=== PATIENT | male | born 1935 | race Caucasian/White ===

== ENCOUNTER 2017-10-31 13:43 | Inpatient (IN) | payer MEDICARE ==
[~2017-10-31] VITALS: Ht 185.4 cm; Wt 103.9 kg
[2017-10-31] MEDS ORDERED: SODIUM CHLORIDE FLUSH 10 ML SYR INJ PRN ×2 (14:15)
[2017-10-31 15:06] LABS: BASOPHILS # (AUTO) 0.1 (0.0-0.1); BASOPHILS % 0.4 % (0.0-1.0); EOSINOPHILS % 0.1 % (0.0-6.0); HEMATOCRIT 38.7 % (38.2-49.6); HEMOGLOBIN 13.2 g/dL (14.0-18.0); LYMPHOCYTES # (AUTO) 0.9 (1.0-3.2); LYMPHOCYTES % 5.4 % (18.0-39.1); MEAN CORPUSCULAR HGB CONC 34.1 g/dL (31-35); MEAN CORPUSCULAR VOLUME 90.8 fL (81-99); MONOCYTES # (AUTO) 0.7 (0.2-0.8); MONOCYTES % 4.6 % (4.4-11.3); NEUTROPHILS # (AUTO) 14.3 (2.1-6.9); NEUTROPHILS % 88.8 % (38.7-80.0); PLATELET COUNT 301 x10e3/uL (140-360); RED BLOOD COUNT 4.26 x10e6/uL (4.3-5.7); RED CELL DISTRIBUTION WIDTH 13.2 % (11.7-14.4)
[2017-10-31 15:09] LABS: BILIRUBIN,URINE NEGATIVE (NEGATIVE); CLARITY,URINE CLEAR (CLEAR); COLOR,URINE YELLOW (YELLOW); KETONES,URINE NEGATIVE (NEGATIVE); LEUKOCYTE ESTERASE ,URINE NEGATIVE (NEGATIVE); NITRITE,URINE NEGATIVE (NEGATIVE); PROTEIN,URINE DIPSTICK NEGATIVE (NEGATIVE); URINE UROBILINOGEN 0.2 mg/dL (0.2 - 1)
[2017-10-31 15:30] LABS: RBC,URINE 0-5 /HPF (0-5); WBC,URINE (MAN) 0-5 /HPF (0-5)
[2017-10-31 15:30] LABS: ALBUMIN 3.7 g/dL (3.5-5.0); ALBUMIN/GLOBULIN RATIO 1.3 (0.8-2.0); ANION GAP 16.2 mmol/L (8-16); CALCIUM 9.4 mg/dL (8.4-10.2); CREATININE, SERUM 2.09 mg/dL (0.72-1.25); POTASSIUM 4.2 mmol/L (3.5-5.1)
[2017-10-31 15:37] LABS: CREATINE KINASE MB 3.3 ng/mL (0.00-5.00); TROPONIN I 0.015 ng/mL (0-0.300)
--- NOTE | 2017-10-31 15:41 | Diagnostic Imaging Report ---
EXAM: CT Abdomen and Pelvis WITHOUT contrast INDICATION: COMPARISON: None. TECHNIQUE: Abdomen and Pelvis was scanned utilizing a multidetector helical scanner without the use of IV contrast. Coronal and sagittal reformations were obtained. IV CONTRAST: None COMPLICATIONS: None RADIATION DOSE: Total DLP: 2365 mGy*cm Estimated effective dose: (DLP x 0.015 x size factor) mSv CTDIvol has been reviewed. It is below the limits set by the Radiation Protocol Committee (RPC). FINDINGS: Abdomen: Lung Bases: Atelectasis present lung bases. Solid Organs: Bilateral renal hypodensities are incompletely evaluated, but statistically represent simple cysts. Largest on the right 51 mm and largest on the left 59 mm. Bilateral nonobstructing renal calculi present, largest on the right 6 mm and largest on the left 4 mm. No hydronephrosis or ureteral calculi. Nonenhanced images of the liver, adrenals, spleen, and pancreas are unremarkable except for fatty infiltration of the pancreas. Upper GI Tract: Small hiatal hernia. Gastric decompression limits evaluation. No small bowel obstructive changes. Vascularity: Moderate aortic vascular calcifications with no aneurysm. Lymph Nodes: Within limitations of nonenhanced exam, no suspicious adenopathy. Other: No right flank hematoma is identified within the subcutaneous tissues. Minimal subcutaneous stranding may represent mild contusion. Pelvis: Bladder: Unremarkable. Other: Prosthetic seeds. Inguinal canals patulous. [place] artifact from left hip prosthesis partially limits pelvic evaluation. Colon: No acute colonic findings. Appendix not inflamed. Bones: Degenerative changes spine, vertebroplasty changes L5, and total hip arthroplasty changes on the left. IMPRESSION: 1. No large right flank hematoma identified. Minimal subcutaneous stranding suggest contusion. 2. Statistical cysts in the kidneys bilaterally with bilateral nonobstructing renal calculi. 3. Other findings as above. Signed by: Dr. Michael Carrillo MD on 10/31/2017 3:37 PM
--- NOTE | 2017-10-31 15:41 | Diagnostic Imaging Report ---
EXAM: XR CHEST 1 VIEW DATE: 10/31/2017 2:12 PM INDICATION: Fall COMPARISON: None FINDINGS: Lines and Tubes: None Heart and Mediastinum: No acute findings. Lungs and Pleura: Minimal opacities in the lung bases statistically represent atelectasis, however, infectious process could have a similar appearance. Bones and Soft Tissues: No acute findings. IMPRESSION: 1. No acute cardiopulmonary findings. Signed by: Dr. Michael Carrillo MD on 10/31/2017 3:37 PM
--- NOTE | 2017-10-31 15:59 | Diagnostic Imaging Report ---
Examination: CT BRAIN WITHOUT CONTRAST History:Dizziness. Fall. No head injury. Comparison studies:None Technique: Axial images were obtained from the skull base to the vertex. Coronal and sagittal images reconstructed from the axial data. Intravenous contrast: None Findings: Scalp: No abnormalities. Bones: No fractures, blastic or lytic lesions. Brain sulci: Mild volume loss for age. Ventricles: No hydrocephalus. Extra-axial space: No abnormalities. Parenchyma: Chronic cortical based infarcts are demonstrated in the right inferior and left superior frontal gyri, bilateral superior parietal lobules, right occipital lobe, right superior cerebellum and left posterior mid cerebellum. There are mild confluent areas of hypoattenuation in the periventricular and subcortical white matter, nonspecific. No masses, hemorrhage, or acute cortical based vascular insults. Sellar/suprasellar region: No abnormalities. Craniocervical junction: Patent foramen magnum. No Chiari one malformation. Incidental findings: Opacified right sphenoid sinus. Atherosclerotic calcification of the cavernous and supraclinoid internal carotid arteries. Impression: 1. No acute intracranial abnormality. 2. Chronic cortical based bilateral frontoparietal, right occipital lobe, and bilateral cerebellar infarcts, as above. 3. Mild chronic microvascular ischemic change and volume loss. Signed by: Dr. Ema Virk M.D. on 10/31/2017 3:55 PM
[2017-10-31] MEDS ORDERED: DEXTROSE 50% SYRINGE 50 ML IV PRN ×2 (17:45→18:30)
[2017-10-31] MEDS ORDERED: METFORMIN HCL500 MG PO (17:51)
[2017-10-31] MEDS ORDERED: HYDROCHLOROTHIA25 MG PO (17:52)
[2017-10-31] MEDS ORDERED: PREDNISONE10 MG PO (17:54)
[2017-10-31] MEDS ORDERED: LISINOPRIL2.5 MG PO (17:54)
[2017-10-31] MEDS ORDERED: GLIMEPIRIDE2 MG PO (17:54)
[2017-10-31] MEDS ORDERED: AMLODIPINE BESYL5 MG PO (17:54)
[2017-10-31] MEDS ORDERED: ALLOPURINOL100 MG PO (17:54)
[2017-10-31] MEDS: INSULIN REGULAR, HUMAN 100 UNIT/1 ML 3ML VIAL SQ SCH (18:33)
[2017-10-31 22:15] VITALS: BP 150/81
[2017-10-31 23:00] VITALS: BP 150/81
[2017-11-01] VITALS (7 sets, daily range): BP systolic 126–160; BP diastolic 71–89
[2017-11-01 06:02] LABS: CREATINE KINASE MB 2.8 ng/mL (0.00-5.00); TROPONIN I 0.011 ng/mL (0-0.300)
[2017-11-01] MEDS: INSULIN REGULAR, HUMAN 100 UNIT/1 ML 3ML VIAL SQ SCH ×4 (07:30→21:03)
[2017-11-01] MEDS: ASPIRIN 81 MG ENTERIC COATED PO SCH (08:01)
[2017-11-01 09:20] LABS: CREATINE KINASE MB 2.6 ng/mL (0.00-5.00); TROPONIN I 0.01 ng/mL (0-0.300)
--- NOTE | 2017-11-01 15:20 | Consultation ---
DATE OF CONSULTATION: November 01, 2017 NEPHROLOGY CONSULTATION REASON FOR CONSULTATION: Chronic kidney disease. This is an 82-year-old male who is known to have multiple medical problems including hypertension and diabetes for a long time with diabetic retinopathy and neuropathy. He basically felt dizzy last week and tripped and fell on an ironing board and hit his right side flank area. A few days later, he called his daughter to bring him to the ER for further evaluation for which a CAT scan did not show any hematoma. He is not aware of previous kidney problems or what was his kidney baseline function. Today, his creatinine is 2 and BUN 33, and thus we are consulted. REVIEW OF SYSTEMS: Negative otherwise. PAST MEDICAL HISTORY: As mentioned above. PAST SURGICAL HISTORY: Per record. SOCIAL HISTORY: Denies smoking, alcohol or IV drug abuse. Lives by himself. ALLERGIES: NEGATIVE PER RECORDS. FAMILY HISTORY: Positive for hypertension and diabetes. PHYSICAL EXAMINATION VITALS: Today's vital signs include blood pressure 150/76, heart rate 90, temperature 98.8. GENERAL: Appears in no acute distress. Alert and oriented. HEAD, EARS, EYES, NECK: No lymphadenopathy. HEART: Regular rate and rhythm. LUNGS: Good bilateral air entry. ABDOMEN: Soft, nontender, with bruising on the right side flank. LOWER EXTREMITIES: Trace edema. LABS: His white count is elevated at 16 with left shift. Hemoglobin 13.2. Creatinine was about 2. Potassium 4.2. His sodium was 136. LFTs are normal. Albumin is 3.7. ASSESSMENT AND PLAN 1. Chronic kidney disease, stage 3 probably. The patient is unaware about previous kidney problems, but I am suspecting underlying diabetic nephropathy and probably hypertensive nephrosclerosis. We are going to monitor closely. Avoid nephrotoxins. Check fractional excretion of sodium. Renal ultrasound. Educated the patient about holding nonsteroidal anti-inflammatory drugs and avoiding further nephrotoxins. 2. Electrolytes are within range. 3. Diabetes. The patient is on metformin, which is not recommended with stage-3B and further down. I am going to change it to Starlix or Januvia, whatever is more safe on the kidneys in the setting of CKD. 4. Hypertension. Blood pressure is high. Titrate medications. Can keep lisinopril for now as he has been on it for a while. Check urine protein to creatinine ratio. 5. Leukocytosis, possible urinary tract infection. Urine culture has been sent. Thank you for the consult. We will update the primary team for further recommendations. Job#: [id number] GARRISON
--- NOTE | 2017-11-01 16:57 | Diagnostic Imaging Report ---
EXAMINATION: MR angiogram of the neck without contrast CLINICAL HISTORY: TIA, status post fall. COMPARISON: NA TECHNIQUE: A 2D [id number] TOF angiographic sequences without was performed on the neck . The source images and sales representative publications projections of the MIP images through 180 degrees of rotation of the neck were reviewed FINDINGS: If present, stenosis of the carotid bulbs is measured based on NASCET criteria i.e area of maximum stenosis compared to the cervical ICA distal to the bulb. Carotid bulbs: Hypointense signal within the left carotid bulb results in moderate stenoses (50-69%), likely a combination of flow related artifact and atherosclerosis. Pelvis extent hyperintense signal is seen in the right carotid bulb without dynamic significant stenosis (less than 50%). Right Carotid Artery: The common carotid, internal and external carotid arteries at the level of the neck are normal in caliber, and patent, no evidence of stenoses. Left Carotid Artery: The common carotid, internal and external carotid arteries at the level of the neck are normal in caliber, and patent, no evidence of stenoses. Vertebral Arteries: The left vertebral artery is originating from the aortic arch, as a normal variation of the anatomy. Both are normal in morphology and caliber. Both are codominant. No significant stenosis is seen. IMPRESSION: 1. Moderate stenosis of the left carotid bulb (50-69%). A CT angiogram of the head and neck is recommended for further evaluation. 2. No hemodynamically significant stenosis of the right carotid bulb. 3. Patent vertebral arteries Signed by: Dr. Isabel Wallace M.D. on 11/01/2017 4:53 PM
[2017-11-01] MEDS ORDERED: METFORMIN HCL 500 MG TAB PO SCH (17:00)
--- NOTE | 2017-11-01 17:04 | Diagnostic Imaging Report ---
EXAMINATION: MRI of the brain without contrast. HISTORY: TIA COMPARISON: Head CT on 10/31/2017 TECHNIQUE: Sagittal T2; axial DWI, T2, FLAIR, T1-IR, T2 gradient echo; coronal FLAIR. IMAGE QUALITY: Adequate. FINDINGS: Parenchyma: 1. No acute infarcts. 2. Unchanged multiple watershed cortical infarcts in the bilateral frontal lobes (LIZZ/MCA distribution) and left greater than right parieto-occipital regions (MCA/BILLING ASSISTANT distributions). 3. Hemosiderin deposition in the right medial occipital encephalomalacia (cuneus) related to hemorrhagic component from chronic infarction in the right degenerative distribution. 4. A small chronic cortical infarct in the bilateral superior and posterior cerebellar hemispheres. 5. Moderate confluent supratentorial white matter hyperintensities, most likely nonspecific moderate chronic microvascular ischemic changes. 6. No mass, hemorrhage, acute or chronic infarcts. Skull: Unremarkable. Vessels: Expected flow voids present in the major arteries and dural sinuses. Extra-axial spaces: No abnormal signal intensity or mass effect. Brain volume: Within normal limits for age. Ventricles: No hydrocephalus or displacement. Foramen magnum: Unremarkable. Sella: Unremarkable. Paranasal / mastoid sinuses: No significant inflammatory disease. IMPRESSION: 1. No acute infarcts. 2. Unchanged multiple chronic watershed distribution cortical infarcts. Right occipital and bilateral cerebellar chronic infarcts. 3. Moderate confluent white matter chronic microvascular ischemic changes. Signed by: Dr. Isabel Wallace M.D. on 11/01/2017 5:00 PM
[2017-11-02 00:01] VITALS: BP 153/77
[2017-11-02 04:00] VITALS: BP 148/67
[2017-11-02 06:45] LABS: BASOPHILS # (AUTO) 0.1 (0.0-0.1); BASOPHILS % 0.5 % (0.0-1.0); EOSINOPHILS # (AUTO) 0.2 (0.0-0.4); EOSINOPHILS % 1.9 % (0.0-6.0); HEMATOCRIT 36.1 % (38.2-49.6); HEMOGLOBIN 12.5 g/dL (14.0-18.0); LYMPHOCYTES # (AUTO) 1.7 (1.0-3.2); LYMPHOCYTES % 13.6 % (18.0-39.1); MEAN CORPUSCULAR HEMOGLOBIN 31.3 pg (28-32); MEAN CORPUSCULAR HGB CONC 34.6 g/dL (31-35); MEAN CORPUSCULAR VOLUME 90.5 fL (81-99); MONOCYTES % 7.6 % (4.4-11.3); NEUTROPHILS # (AUTO) 9.4 (2.1-6.9); NEUTROPHILS % 75.8 % (38.7-80.0); PLATELET COUNT 235 x10e3/uL (140-360); RED BLOOD COUNT 3.99 x10e6/uL (4.3-5.7); RED CELL DISTRIBUTION WIDTH 13.1 % (11.7-14.4)
[2017-11-02 07:17] LABS: ANION GAP 13.8 mmol/L (8-16); CALCIUM 9.1 mg/dL (8.4-10.2); CREATININE, SERUM 1.6 mg/dL (0.72-1.25); POTASSIUM 3.8 mmol/L (3.5-5.1)
[2017-11-02 07:43] VITALS: BP 139/63
[2017-11-02] MEDS: HYDROCHLOROTHIAZIDE 25 MG TAB PO SCH (08:10)
[2017-11-02] MEDS: GLIMEPIRIDE 2 MG TAB PO SCH (08:10)
[2017-11-02] MEDS: INSULIN REGULAR, HUMAN 100 UNIT/1 ML 3ML VIAL SQ SCH ×4 (08:10→21:00)
[2017-11-02] MEDS: SITAGLIPTIN 100 MG TAB PO SCH (08:10)
[2017-11-02] MEDS: PREDNISONE 10 MG TAB PO SCH (08:10)
[2017-11-02] MEDS: ALLOPURINOL 100 MG TAB PO SCH (08:10)
[2017-11-02] MEDS: ASPIRIN 81 MG ENTERIC COATED PO SCH (08:10)
[2017-11-02] MEDS ORDERED: LISINOPRIL 10 MG TAB PO SCH (09:00)
[2017-11-02] MEDS ORDERED: AMLODIPINE BESYLATE 5 MG TAB PO SCH (09:00)
[2017-11-02] MEDS: SODIUM CHLORIDE 0.9% 1000ML 1,000 ML IV SCH ×2 (11:30→16:30)
[2017-11-02 11:36] VITALS: BP 151/66
[2017-11-02 16:14] VITALS: BP 113/61
[2017-11-03] MEDS: SODIUM CHLORIDE 0.9% 1000ML 1,000 ML IV SCH ×3 (00:03→17:31)
[2017-11-03 06:08] LABS: BASOPHILS # (AUTO) 0.1 (0.0-0.1); BASOPHILS % 0.5 % (0.0-1.0); EOSINOPHILS # (AUTO) 0.3 (0.0-0.4); HEMATOCRIT 36.2 % (38.2-49.6); HEMOGLOBIN 12.3 g/dL (14.0-18.0); LYMPHOCYTES # (AUTO) 1.7 (1.0-3.2); LYMPHOCYTES % 12.9 % (18.0-39.1); MEAN CORPUSCULAR HEMOGLOBIN 31.1 pg (28-32); MEAN CORPUSCULAR VOLUME 91.4 fL (81-99); MONOCYTES % 7.7 % (4.4-11.3); NEUTROPHILS # (AUTO) 9.8 (2.1-6.9); NEUTROPHILS % 76.4 % (38.7-80.0); PLATELET COUNT 235 x10e3/uL (140-360); RED BLOOD COUNT 3.96 x10e6/uL (4.3-5.7); RED CELL DISTRIBUTION WIDTH 13.2 % (11.7-14.4)
[2017-11-03 06:46] LABS: ANION GAP 11.6 mmol/L (8-16); CREATININE, SERUM 1.68 mg/dL (0.72-1.25); MAGNESIUM 2.1 MG/DL (1.3-2.1); POTASSIUM 3.6 mmol/L (3.5-5.1)
[2017-11-03] MEDS: INSULIN REGULAR, HUMAN 100 UNIT/1 ML 3ML VIAL SQ SCH ×4 (07:30→21:48)
--- NOTE | 2017-11-03 08:07 | Consultation ---
DATE OF CONSULTATION: November 02, 2017 NEUROLOGICAL CONSULTATION TIME: 6:15 p.m. REASON FOR CONSULTATION: Paresthesia, pain and weakness in both hands, and paresthesia in both feet. This is an 82-year-old male who was admitted because of a fall and injury to the right flank. He was brought to the emergency room. CT scan was negative. He was admitted because of severe pain. Neuro consultation was requested because the patient has been complaining of paresthesia, numbness, tingling, and weakness of both hands, and numbness, tingling and some burning sensation in both feet going up to the knee that has been there for some time. PAST MEDICAL HISTORY: Multiple medical problems including diabetes mellitus, type 2, hypertension. He has neuropathy, diabetic type and retinopathy. Other past history is the patient has a long history of ocular myasthenia that was diagnosed years ago. He has been taking prednisone 10 mg a day. At one time, he was said he was off the prednisone for several days, and he became weak in the arms and legs, and had to take medication. He has also been complaining of unsteady gait and tendency to fall. SOCIAL HISTORY: He does not smoke or drink. Lives by himself. ALLERGIES: NEGATIVE. FAMILY HISTORY: Diabetes and hypertension. MEDICATIONS: List of medications has been reviewed in detail. REVIEW OF SYSTEMS: Negative. PHYSICAL EXAMINATION VITALS: Blood pressure 150/70, pulse 84 and regular, and afebrile. LUNGS: Clear to auscultation. HEART: Regular sinus rhythm. No murmurs. ABDOMEN: Soft and nontender. No organomegaly. MUSCULOSKELETAL: Lower extremities with no edema. No erythema. No cyanosis. No clubbing. No back or neck pain. NEURO: He is alert. He is awake. Speech clear. No dysarthria or dysphagia. Oriented times 3. Cranial nerves: Pupils are both equal and reactive. Extraocular movements were full. Visual field on testing was normal. He has a droopy eyelid on the left side. I asked the patient to fix his gaze on the ceiling for a couple of minutes, and the drooping of the left eye got worse. No facial weakness. Facial sensation is normal. Tongue protrudes in the midline. Palate moves normal. He denies any shortness of breath. He denies any weakness in the arms or legs. He denies dysphagia. Motor power: Upper extremities, there is mild wasting of the muscles. Muscle strength: Abduction of the arms is 5/5. Flexion extension of the arms is 5/5. Dorsiflexion of the wrist is 5/5. Finger extension is 5/5. Abductor muscles is 3/5 bilaterally. Lower extremities: Flexion of the hips is 5/5. Flexion extension of the knees is 5/5. Flexion of the ankles is 5/5. Plantar flexion is 5/5. Toe extension is 5/5. Deep tendon reflexes of the triceps, biceps and radials are 1+. Knee jerk absent. Ankle jerk absent bilaterally. Sensory examination to pinprick is mild is in the stocking distribution above the ankle. Vibration sensation is decreased up to the ankle. testing of the wrist is positive. test of the elbows negative. HEENT: Head is normocephalic. NECK: Supple. Carotid pulsations were present bilaterally. There was no bruit. Gait is definitely unsteady. IMPRESSION 1. Chronic kidney disease. 2. Diabetes mellitus, type 2. 3. Hypertension. 4. 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 5. Peripheral neuropathy in both lower extremities, moderate to severe. 6. Bilateral carpal tunnel syndrome. RECOMMENDATIONS: Physical therapy for ambulation. Will discuss with the attending to place in rehabilitation. Continue with the prednisone for his myasthenia. Will send for receptor antibodies. Will do as an outpatient EMG and SSEP in both upper and lower extremities for the peripheral neuropathy and for the carpal tunnel syndrome. The patient understood. The daughter was present and understood. Will monitor very closely. Job#: [id number] [place]
[2017-11-03 08:40] VITALS: BP 139/66
[2017-11-03] MEDS ORDERED: AMLODIPINE BESYLATE 5 MG TAB PO SCH (09:00)
[2017-11-03] MEDS: ASPIRIN 81 MG ENTERIC COATED PO SCH (09:41)
[2017-11-03] MEDS: AMLODIPINE BESYLATE 10 MG TAB PO SCH (09:42)
[2017-11-03] MEDS: PREDNISONE 10 MG TAB PO SCH (09:42)
[2017-11-03] MEDS: GLIMEPIRIDE 2 MG TAB PO SCH (09:42)
[2017-11-03] MEDS: SITAGLIPTIN 100 MG TAB PO SCH (09:42)
[2017-11-03] MEDS: LISINOPRIL 10 MG TAB PO SCH (09:42)
[2017-11-03] MEDS: HYDROCHLOROTHIAZIDE 25 MG TAB PO SCH (09:42)
[2017-11-03] MEDS: ALLOPURINOL 100 MG TAB PO SCH (09:42)
[2017-11-03 12:48] VITALS: BP 148/68
[2017-11-03 16:18] VITALS: BP 136/63
[2017-11-03] MEDS ORDERED: DIPHENHYDRAMINE HCL 25 MG CAP PO PRN (17:45)
[2017-11-03 20:00] VITALS: BP 130/63
[2017-11-04] VITALS: BP 119/61
[2017-11-04] MEDS: SODIUM CHLORIDE 0.9% 1000ML 1,000 ML IV SCH (02:58)
[2017-11-04 04:00] VITALS: BP 155/70
[2017-11-04 06:37] LABS: ANION GAP 12.6 mmol/L (8-16); CALCIUM 8.8 mg/dL (8.4-10.2); CREATININE, SERUM 1.64 mg/dL (0.72-1.25); POTASSIUM 3.6 mmol/L (3.5-5.1)
[2017-11-04] MEDS: INSULIN REGULAR, HUMAN 100 UNIT/1 ML 3ML VIAL SQ SCH ×4 (07:30→21:33)
[2017-11-04 08:20] VITALS: BP 150/75
[2017-11-04] MEDS: LISINOPRIL 10 MG TAB PO SCH (08:23)
[2017-11-04] MEDS: ALLOPURINOL 100 MG TAB PO SCH (08:23)
[2017-11-04] MEDS: PREDNISONE 10 MG TAB PO SCH (08:23)
[2017-11-04] MEDS: GLIMEPIRIDE 2 MG TAB PO SCH (08:23)
[2017-11-04] MEDS: HYDROCHLOROTHIAZIDE 25 MG TAB PO SCH (08:23)
[2017-11-04] MEDS: ASPIRIN 81 MG ENTERIC COATED PO SCH (08:23)
[2017-11-04] MEDS: SITAGLIPTIN 100 MG TAB PO SCH (08:23)
[2017-11-04] MEDS: AMLODIPINE BESYLATE 10 MG TAB PO SCH (08:24)
[2017-11-04 12:11] VITALS: BP 137/68
[2017-11-04 12:45] LABS: ANION GAP 10.8 mmol/L (8-16); CALCIUM 8.8 mg/dL (8.4-10.2); CREATININE, SERUM 1.68 mg/dL (0.72-1.25); POTASSIUM 3.8 mmol/L (3.5-5.1)
[2017-11-04 16:03] VITALS: BP 126/60
[2017-11-04 20:51] VITALS: BP 147/68
[2017-11-05] VITALS: BP 172/79
[2017-11-05 04:00] VITALS: BP 150/66
[2017-11-05 06:41] LABS: BASOPHILS # (AUTO) 0.1 (0.0-0.1); BASOPHILS % 0.4 % (0.0-1.0); EOSINOPHILS # (AUTO) 0.3 (0.0-0.4); EOSINOPHILS % 2.1 % (0.0-6.0); HEMATOCRIT 35.3 % (38.2-49.6); HEMOGLOBIN 11.8 g/dL (14.0-18.0); LYMPHOCYTES # (AUTO) 1.5 (1.0-3.2); LYMPHOCYTES % 10.7 % (18.0-39.1); MEAN CORPUSCULAR HEMOGLOBIN 31.5 pg (28-32); MEAN CORPUSCULAR HGB CONC 33.4 g/dL (31-35); MEAN CORPUSCULAR VOLUME 94.1 fL (81-99); MONOCYTES # (AUTO) 1.1 (0.2-0.8); MONOCYTES % 7.9 % (4.4-11.3); NEUTROPHILS # (AUTO) 10.7 (2.1-6.9); NEUTROPHILS % 78.4 % (38.7-80.0); PLATELET COUNT 251 x10e3/uL (140-360); RED BLOOD COUNT 3.75 x10e6/uL (4.3-5.7); RED CELL DISTRIBUTION WIDTH 13.6 % (11.7-14.4)
[2017-11-05] MEDS: INSULIN REGULAR, HUMAN 100 UNIT/1 ML 3ML VIAL SQ SCH (07:30)
[2017-11-05 08:00] VITALS: BP 144/62
[2017-11-05] MEDS ORDERED: LISINOPRIL 20 MG TAB PO SCH (09:00)
[2017-11-05] MEDS: HYDROCHLOROTHIAZIDE 25 MG TAB PO SCH (09:05)
[2017-11-05] MEDS: GLIMEPIRIDE 2 MG TAB PO SCH (09:05)
[2017-11-05] MEDS: ASPIRIN 81 MG ENTERIC COATED PO SCH (09:05)
[2017-11-05] MEDS: SITAGLIPTIN 100 MG TAB PO SCH (09:05)
[2017-11-05] MEDS: PREDNISONE 10 MG TAB PO SCH (09:06)
[2017-11-05] MEDS: ALLOPURINOL 100 MG TAB PO SCH (09:06)
[2017-11-05] MEDS: AMLODIPINE BESYLATE 10 MG TAB PO SCH (09:06)
== END 2017-11-05 11:35 | DRG 57 ==
LOC: ER 13:43 → ERHOLD 18:08 → UNDOADMOB 18:08 → ERHOLD 18:09 → IMCU 20:39 → OBSVTOIN 11-02 11:36 → INTOOBSV 11-02 11:36 → IMCU 11-02 19:28 → MED/SURG2 11-02 19:28
DX: G70.00 Myasthenia gravis without (acute) exacerbation (principal); N17.9 Acute kidney failure, unspecified; E11.22 Type 2 diabetes mellitus with diabetic chronic kidney disease; E11.40 Type 2 diabetes mellitus with diabetic neuropathy, unspecified; E11.319 Type 2 diabetes mellitus with unspecified diabetic retinopathy without macular edema; E11.9 Type 2 diabetes mellitus without complications; Z79.4 Long term (current) use of insulin; I12.9 Hypertensive chronic kidney disease with stage 1 through stage 4 chronic kidney disease, or unspecified chronic kidney disease; G56.02 Carpal tunnel syndrome, left upper limb; G56.01 Carpal tunnel syndrome, right upper limb; N18.3 Chronic kidney disease, stage 3 (moderate); R20.0 Anesthesia of skin; W19.XXXA Unspecified fall, initial encounter; Z91.81 History of falling; G70.89 Other specified myoneural disorders; H54.7 Unspecified visual loss; M10.9 Gout, unspecified; S30.0XXA Contusion of lower back and pelvis, initial encounter
CPT/HCPCS: 36415; 70450; 70547; 70551; 71010; 74176; 80048; 80053; 81001; 82550; 82553; 82948; 83519; 83735; 84484; 85025; 86255; 87086; 93005; 93306; 93880; 96372; 97139; 99284; G0378; J7030